=== PATIENT | male | born 1985 | race Caucasian/White ===

== ENCOUNTER 2022-05-07 23:57 | Emergency (ER) | payer MEDICAID, SELFPAY ==
[2022-05-08 00:01] VITALS: BP 136/72; PULSE 85; RESP 18; TEMP 37.1; O2SAT 98; BMI 29.8
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
[2022-05-08] MEDS: Lidocaine 1% /Epi 1:100 (20ml) 20 ML Vial INFILT (00:35)
[2022-05-08 00:55] LABS: Absolute Lymphocyte Count 1.87 X10^3/uL (0.83-4.51); Absolute Neutrophil Count 5.8 X10^3/uL (2.0-7.7); Basophil# 0.05 X10^3/uL; Basophil% 0.6 % (0-1); Eosinophil# 0.08 X10^3/uL; Eosinophils% 0.9 % (0-5); Hematocrit 45.9 % (40-54); Hemoglobin 15.9 g/dL (13.0-16.5); Lymphocyte # 1.87 X10^3/ul (0.83-4.51); Lymphocyte % 21.8 % (19-41); Mean Corp Hgb Conc 34.6 g/dL (32-36); Mean Corpuscular Hgb 31.9 pg (27.0-32.0); Mean Corpuscular Volume 92.2 fL (80-94); Mean Platelet Vol. 8.9 fl (6.2-12.0); Monocyte# 0.69 X10^3/uL; Monocyte% 8.1 % (0-10); NRBC Flagged by Analyzer 0 % (0-5); Neutrophil # 5.84 X10^3/uL (2.7-7.7); Neutrophil % 68.2 % (47-70); Platelet Count 226 K/mm3 (150-450); RBC Distribution Width CV 12.3 % (11.6-14.6); RBC Distribution Width SD 41.8 fl (35.1-43.9); Red Blood Count 4.98 M/mm3 (4.6-6.2); White Blood Count 8.6 K/mm3 (4.4-11.0)
[2022-05-08 01:17] LABS: Anion Gap 5 (5-15); BUN 12 mg/dL (7-18); BUN/Creat Ratio 10.8 RATIO (10-20); Calcium,Total 8.5 mg/dL (8.5-10.1); Chloride 114 mmol/L (98-107); Creatinine, Serum 1.11 mg/dL (0.70-1.30); EST Glomerular Filtration Rate 80 mL/min (>60); Est Glom Filt Rate - Afr Amer 97 mL/min (>60); Estimated Creatinine Clearance 81.57 ml/min; Glucose 102 mg/dL (74-106); Sodium Level 145 mmol/L (136-145)
--- NOTE | 2022-05-08 01:40 | ED.RN ---
patient notified of lab results. that his etoh level 291. Patient very upset and stated that we lied about his lab results. patient states he is not drunk and that we have some one else blood work. patient informed that he was now pink slipped due to comments he made during his arrest and transport. patient still denies SI and that he is not SI and wants to go home. Patient at this time starts becoming very argumentative and starting to crawl out of bed while being handcuffed. patient now being verbally aggressive and starting to fight the police. patient stating that he will grab the police officers gun and start firing shots at people. patient at this time now being restrained by two police officers. patient placed in 4 point locked restraints and given IM geodon. Patient yelling and fighting with police. Patient advised of conditions but now able to be redirected at this time. Patient left alone and his condition has improved and behavior has improved at this time.
[2022-05-08] MEDS: Ziprasidone IM 20 MG/ML VIAL IM (01:41)
--- NOTE | 2022-05-08 02:11 | ED.RN ---
attempted to reach mother for patient to notify he was here. left message [phone]
[2022-05-08 02:21] LABS: Amphetamine Urine VISTA NEGATIVE (<1000 ng/mL); Barbiturate Urine VISTA NEGATIVE (< 200 ng/mL); Benzodiazepine Urine VISTA NEGATIVE (< 200 ng/mL); Cocaine Urine VISTA NEGATIVE (< 300 ng/mL); Ecstacy Urine VISTA NEGATIVE (< 500 ng/mL); Methadone Urine VISTA NEGATIVE (< 300 ng/mL); PCP Urine VISTA NEGATIVE (< 25 ng/mL); THC Urine VISTA POSITIVE (< 50 ng/mL); Vista UDS pH Range 5
[2022-05-08 06:44] VITALS: BP 130/80; PULSE 89; RESP 18; O2SAT 98
--- NOTE | 2022-05-08 07:34 | ED.RN ---
dr joseph in to suture head lac. pt cooperative at this time. argueing that doesnt agree with pink donna sitter in at bedside.
--- NOTE | 2022-05-08 08:00 | ED.RN ---
mother called back and update given.
[2022-05-08 09:41] VITALS: BP 129/86; PULSE 73; O2SAT 98
[2022-05-08] MEDS: Acetaminophen 500 MG Tablet 1000 MG PO (10:20)
[2022-05-08] MEDS: LORazepam 0.5 MG Tablet PO (10:20)
[2022-05-08 13:50] VITALS: BP 148/82; PULSE 79; RESP 18; TEMP 37; O2SAT 95
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
--- NOTE | 2022-05-08 14:30 | CM.ED ---
Social Work Note SW faxed referrals to [place] and [facility]. Erinn Prince CARTRIDGE GAUGER, CORRECTIONS COUNSELOR
--- NOTE | 2022-05-08 15:26 | CM.ED ---
Addendum entered by Erinn Prince 05/08/22 15:35: SW updated pt that recommendation is inpatient psych and that this worker is trying to find a place for him. Pt states understanding. Original Note: Social Work Note SW received a call from [facility], they have denied pt due to acuity. SW faxed referral to [facility]. Erinn Prince POLE SHAVER HELPER, WIRE BOUND BOX MACHINE HELPER
--- NOTE | 2022-05-08 15:34 | EKG12_ITS ---
Test Reason : MED CLEARANCE Blood Pressure : / mmHG Vent. Rate : 076 BPM Atrial Rate : 076 BPM P-R Int : 124 ms QRS Dur : 082 ms QT Int : 374 ms P-R-T Axes : 031 093 060 degrees QTc Int : 420 ms Normal sinus rhythm with sinus arrhythmia Normal ECG Confirmed by KENNA MASON, GUY ([id number]), magazine editor THOMAS VILLAR ([id number]) on 05/10/2022 10:04:33 AM Referred By: MICAELA Confirmed By:GUY PIERSON MD
--- NOTE | 2022-05-08 15:34 | NURSING ---
NO OLD EKGS
--- NOTE | 2022-05-08 16:35 | CM.ED ---
Social Work Note SW received call from Lisa at [facility] stating they can accept pt. Accepting pt is Dr. Pate. Pt's room/unit will be To Be assigned. RN to RN is main number [phone]. SW updated RN. SW updated MD Smith. SW in to speak with pt and updated him that he will be going to [facility] in [place]. Pt states understanding. [facility] that [facility] not [facility]. SW informed pt that since he is not yet [facility], this worker is not able to get [facility] to [facility]. [facility] once he is discharged from [facility]. Pt states understanding. SW received message from Karla at [facility] stating they are not able to accept due to their physician thinking pt does not meet criteria. Plan: Pt to discharge to [facility] today Erinn Prince CLINICAL LABORATORY SCIENTIST, PHOTOENGRAVER
--- NOTE | 2022-05-08 16:48 | NURSING ---
CALLED [facility], ETA IS 2 HRS
--- NOTE | 2022-05-08 16:52 | ED.RN ---
meal tray called for pt
[2022-05-08 16:55] VITALS: BP 156/93; PULSE 80; RESP 18; TEMP 36.8; O2SAT 100
== END 2022-05-08 19:32 ==
PROVIDERS: Emergency Provider Emergency Medicine; PCP Family Medicine; Visit Provider Emergency Medicine
DX: S01.81XA Laceration without foreign body of other part of head, initial encounter (principal); F10.129 Alcohol abuse with intoxication, unspecified; Y90.8 Blood alcohol level of 240 mg/100 ml or more; W22.09XA Striking against other stationary object, initial encounter; Y93.89 Activity, other specified; Y92.89 Other specified places as the place of occurrence of the external cause; R45.851 Suicidal ideations; F17.210 Nicotine dependence, cigarettes, uncomplicated
CPT/HCPCS: 12011; 36415; 80048; 80307; 82077; 85025; 87426; 93005; 96372; 99285; J3486